=== PATIENT | female | born 1970 | race Caucasian/White ===

== ENCOUNTER 2016-09-27 20:18 | Inpatient (IN) | payer BC, OTHER ==
[2016-09-27] MEDS ORDERED: ONDANSETRON HCL INJ/PF 4 MG/2 ML SDV IV PRN (21:23)
--- NOTE | 2016-09-27 21:24 | ER Document Report ---
ED Cardiac - General Chief Complaint: Chest Pain Stated Complaint: CHEST PAIN Time Seen by Provider: 09/27/16 21:04 Mode of Arrival: Medic Information source: Patient Notes: This is a 46-year-old female status post hysterectomy one week ago presents to the emergency room with left chest and back pain. She states she woke up with the pain and it has been excruciating. It hurts to move it hurts to take in a deep breath patient denies any calf pain or swelling. She denies any family history of pulmonary emboli. - HPI Patient complains to provider of: Chest pain Was the onset of pain: Sudden Is the pain a: New problem Chest pain location: Back Quality of pain: Constant Severity now: Severe Severity at worst: Severe Pain level currently: 5 Chest pain precipitating factors: At Rest Cardiac risk factors: denies: None, Diabetes, Hypertension, Smoker, + Family history, Dyslipidemia, Hx CHF, Hx [place] Positive cardiac history: No Associated symptoms: Shortness of breath. denies: Abdominal pain, Hypotension Exacerbated by: Deep breaths Relieved by: Nothing Similar symptoms previously: Yes Recently seen / treated by doctor: Yes - Related Data Allergies/Adverse Reactions: peanut Allergy (Verified 09/27/16 20:58) Liquid Motrin Allergy (Uncoded 09/27/16 20:58) Liquid Tylenol Allergy (Uncoded 09/27/16 20:58) Past Medical History - General Information source: Patient - Social History Smoking Status: Never Smoker Cigarette use (# per day): No Chew tobacco use (# tins/day): No Frequency of alcohol use: None Drug Abuse: None Lives with: Family Family History: None Patient has suicidal ideation: No Patient has homicidal ideation: No - Past Medical History Cardiac Medical History: Reports: None Pulmonary Medical History: Reports: None EENT Medical History: Reports: None Neurological Medical History: Reports: None Endocrine Medical History: Reports: None Renal/ Medical History: Reports: None Malignancy Medical History: Reports: None GI Medical History: Reports: None Musculoskeltal Medical History: Reports None Skin Medical History: Reports None Psychiatric Medical History: Reports: None Past Surgical History: Reports: Hx Hysterectomy Review of Systems - Review of Systems Constitutional: No symptoms reported EENT: No symptoms reported Cardiovascular: See HPI Respiratory: See HPI Gastrointestinal: No symptoms reported Genitourinary: No symptoms reported Female Genitourinary: No symptoms reported Musculoskeletal: No symptoms reported Skin: No symptoms reported Hematologic/Lymphatic: No symptoms reported Neurological/Psychological: No symptoms reported Physical Exam - Vital signs Vitals: Temp Pulse Resp BP Pulse Ox 98.6 F 85 22 H 94/54 L 96 09/27/16 20:19 09/27/16 20:19 09/27/16 20:19 09/27/16 20:19 09/27/16 20:19 Notes: Physical exam: GENERAL: 46-year-old female, alert and oriented 3, no acute distress HEAD: Atraumatic, normocephalic. EYES: Pupils equal round and reactive to light, extraocular movements intact, sclera anicteric, conjunctiva are normal. ENT: TMs normal, nares patent, oropharynx clear without exudates. Moist mucous membranes. NECK: Normal range of motion, supple without lymphadenopathy or JVD. LUNGS: Breath sounds clear to auscultation bilaterally and equal. No wheezes rales or rhonchi. HEART: Regular rate and rhythm without murmurs, rubs or gallops. ABDOMEN: Soft, normoactive bowel sounds. No tenderness to palpation. No guarding, no rebound. No masses appreciated. EXTREMITIES: Normal range of motion, no pitting or edema. No clubbing or cyanosis. NEUROLOGICAL: Cranial nerves II through XII grossly intact. Normal speech, normal gait. PSYCH: Normal mood, normal affect. SKIN: Warm, Dry, normal turgor, no rashes or lesions noted. Course - Vital Signs Vital signs: Temp Pulse Resp BP Pulse Ox 98.6 F 85 17 107/58 L 95 09/27/16 20:19 09/27/16 20:19 09/27/16 22:46 09/27/16 22:46 09/27/16 23:55 - Laboratory Result Diagrams: 09/27/16 21:35 09/27/16 21:35 Laboratory results interpreted by me: 09/27/16 09/27/16 21:35 21:35 WBC 17.1 H Hgb 11.4 L Hct 33.6 L Seg Neuts % (Manual) 87 H Lymphocytes % (Manual) 4 L Abs Neuts (Manual) 15.6 H Sodium 134.1 L Creatine Kinase 23 L - Diagnostic Test Radiology reviewed: Image reviewed, Reports reviewed - In the chest shows pulmonary emboli. There is an area of atelectasis that may be beginnings of pneumonia. - EKG Interpretation by Me Rate: Normal Rhythm: NSR - EKG shows normal sinus rhythm with a ventricular rate of 80, nonspecific Critical Care Note - Critical Care Note Total time excluding time spent on procedures (mins): 60 Discharge - Discharge Clinical Impression: Bilateral pulmonary emboli, Pneumonia Condition: Stable Disposition: ADMITTED INPATIENT Admitting Provider: Hospitalist - Dr Weller Unit Admitted: [facility]
[2016-09-27] MEDS: HYDROMORPHONE HCL INJ/PF 2 MG/ML AMPULE IV PRN ×2 (21:31→23:35)
--- NOTE | 2016-09-27 21:45 | RADIOLOGY REPORT (SQ) ---
EXAM DESCRIPTION: CHEST SINGLE VIEW COMPLETED DATE/TIME: 09/27/2016 9:12 pm REASON FOR STUDY: chest pain COMPARISON: None. EXAM PARAMETERS: NUMBER OF VIEWS: One view. TECHNIQUE: Single frontal radiographic view of the chest acquired. RADIATION DOSE: NA LIMITATIONS: None. FINDINGS: LUNGS AND PLEURA: Calcified nodule right lower lobe compatible with prior granulomatous di sease. No consolidation, masses or pneumothorax. No pleural effusion. MEDIASTINUM AND HILAR STRUCTURES: No masses. Contour normal. HEART AND VASCULAR STRUCTURES: Heart normal in size. Normal vasculature. BONES: No acute findings. HARDWARE: None in the chest. OTHER: No other significant finding. IMPRESSION: NO ACUTE RADIOGRAPHIC FINDING IN THE CHEST. TECHNICAL DOCUMENTATION: JOB ID: [id number]
[2016-09-27 21:52] LABS: HEMATOCRIT 33.6 % (36.0-47.0); HEMOGLOBIN 11.4 g/dL (12.0-15.5); HGB HCT DIFFERENCE 0.6; MEAN CORPUSCULAR HEMOGLOBIN 30.4 pg (27.0-33.4); MEAN CORPUSCULAR VOLUME 89 fl (80-97); RED BLOOD COUNT 3.76 10^6/uL (3.72-5.28); RED CELL DISTRIBUTION WIDTH 12.8 % (11.5-14.0); WHITE BLOOD COUNT 17.1 10^3/uL (4.0-10.5)
[2016-09-27 22:07] LABS: ALANINE AMINOTRANSFERASE 39 U/L (9-52); ALBUMIN 3.8 g/dL (3.5-5.0); ALKALINE PHOSPHATASE 58 U/L (38-126); ANION GAP 10 (5-19); ASPARTATE AMINO TRANSFERASE 20 U/L (14-36); BILIRUBIN,DIRECT 0.2 mg/dL (0.0-0.4); BILIRUBIN,TOTAL 0.8 mg/dL (0.2-1.3); BLOOD UREA NITROGEN 14 mg/dL (7-20); CALCIUM 8.5 mg/dL (8.4-10.2); CARBON DIOXIDE 24 mmol/L (22-30); CHLORIDE 100 mmol/L (98-107); CREATINE KINASE 23 U/L (30-135); CREATININE RESULT 0.75 mg/dL (0.52-1.25); GLUCOSE 105 mg/dL (75-110); SODIUM 134.1 mmol/L (137-145); TOTAL PROTEIN 6.9 g/dL (6.3-8.2)
[2016-09-27 22:16] LABS: CREATINE KINASE MB < 0.22 ng/mL (<4.55); TROPONIN I < 0.012 ng/mL
[2016-09-27 22:17] LABS: BAND NEUTROPHILS % (MANUAL) 4 % (3-5); BASOPHILS % (MANUAL) 0 % (0-2); EOSINOPHILS % (MANUAL) 0 % (0-6); LYMPHOCYTES % (MANUAL) 4 % (13-45); TOTAL CELLS COUNTED 100
[2016-09-27 22:18] LABS: RBC MORPHOLOGY COMMENT NORMO-CYTIC/CHROMIC; TOXIC GRANULATION SLIGHT
[2016-09-27 22:19] LABS: PLATELET CLUMPS PRESENT
[2016-09-27] MEDS ORDERED: ENOXAPARIN SODIUM INJ 100 MG/1 ML DISP.SYRIN SUBCUT ONE (23:16)
--- NOTE | 2016-09-27 23:16 | RADIOLOGY REPORT (SQ) ---
EXAM DESCRIPTION: CTA CHEST COMPLETED DATE/TIME: 09/27/2016 11:05 pm REASON FOR STUDY: left chest pain COMPARISON: None. TECHNIQUE: CT scan of the chest performed using helical scanning technique with dynamic intravenous contrast injection. Images reviewed with lung, soft tissue and bone windows. Reconstructed coronal and sagittal MPR images reviewed. Additional 3 dimensional post-processing performed to develop Maximal Intensity Projection images (AL P). All images stored on PACS. All CT scanners at this facility use dose modulation, iterative reconstruction, and/or weight based d osing when appropriate to reduce radiation dose to as low as reasonably achievable (ALARA). [facility]: Dose Right [facility]: CareDose [facility]: Dose Right [facility]: Teradose 4D [facility]: GoGoVan CONTRAST TYPE AND DOSE: contrast/concentration: Isovue 370.00 mg/ml; Total Contrast Delivered: 65.0 ml; Total Saline Delivered: 106.0 ml RENAL FUNCTION: GFR > 60. RADIATION DOSE: Up-to-date CT equipment and radiation dose reduction techniques were employed. CTDIv ol: 13.2 - 14.9 mGy. DLP: 586 mGy-cm. . LIMITATIONS: None. FINDINGS: LUNGS AND PLEURA: Left greater than right lower lobe airspace disease with trace bilateral pleural effusions. Calcified granuloma right lower lobe. No pneumothorax. AORTA AND GREAT VESSELS: No aneurysm or dissection. HEART: No pericardial effusion. PULMONARY ARTERIES: Emboli visualized within distal lobar, segmental, and subsegmental branches of th e lower lobe distribution bilaterally. HILAR AND MEDIASTINAL STRUCTURES: No identified masses or abnormal nodes. HARDWARE: None in the chest. UPPER ABDOMEN: No significant findings. Limited exam. THYROID AND OTHER SOFT TISSUES: No masses. No adenopathy. BONES: No acute or significant finding. 3D MIPS: Confirm above findings. OTHER: No other significant finding. IMPRESSION: BILATERAL PULMONARY EMBOLI INVOLVING LOWER LOBE DISTRIBUTION DETAILED ABOVE. NO CT E VIDENCE OF RIGHT HEART STRAIN. BILATERAL LOWER LOBE AIRSPACE DISEASE MAY REPRESENT SUBSEGMENTAL ATELECTASIS, ASPIRATION, OR DEVELOPI NG PNEUMONIA. TRACE BILATERAL PLEURAL EFFUSIONS PRESUMABLY REACTIVE. COMMENT: Pertinent findings on the imaging study reported as a CRITICAL RESULT to ALBARO SOUSA MD at23:10 on 09/27/2016. Category of Critical Result: ACUTE PULMONARY EMBOLI. TECHNICAL DOCUMENTATION: JOB ID: [id number] Quality ID # [id number]: Final reports with documentation of one or more dose reduction techniques (e.g., Au tomated exposure control, adjustment of the mA and/or kV according to patient size, use of iterative reconstruction technique) 2010 [employer]- All Rights Reserved
[2016-09-27] MEDS ORDERED: CEFTRIAXONE 1 GM/D5W RTU 50 ML IV ONE (23:35)
[2016-09-27] MEDS ORDERED: AZITHROMYCIN INJ 500 MG VIAL IV ONE (23:35)
[2016-09-27 23:44] LABS: ADD ON TESTING BLD IN LAB ACKNOWLEDGE
[2016-09-27 23:48] LABS: PROTHROMBIN TIME 14.4 SEC (11.4-15.4)
[2016-09-27 23:49] LABS: PARTIAL THROMBOPLASTIN TIME 32.9 SEC (23.5-35.8)
[2016-09-27 23:53] LABS: MAGNESIUM 1.8 mg/dL (1.6-2.3)
[2016-09-28] MEDS ORDERED: OXYCODONE HCL IR 5 MG TABLET PO PRN ×2 (01:16→01:39)
[2016-09-28] MEDS ORDERED: PROMETHAZINE HCL 25 MG TABLET PO PRN (01:16)
[2016-09-28] MEDS ORDERED: IPRATROPIUM/ALBUTEROL 0.5-2.5 MG/3 ML AMPUL NEB PRN (01:20)
[2016-09-28] MEDS ORDERED: ACETAMINOPHEN 325 MG TABLET PO PRN (01:20)
[2016-09-28] MEDS ORDERED: GUAIFENESIN SYRP 200 MG/10 ML UDC PO PRN (01:20)
[2016-09-28] MEDS ORDERED: MAGNESIUM HYDROXIDE SUSP 30 ML UDCUP PO PRN (01:24)
--- NOTE | 2016-09-28 01:40 | PDOC H&P ---
History of Present Illness Admission Date/PCP: 09/27/16 23:55 [facility] [employer] [address] Marline Frias Patient complains of: Chest pain History of Present Illness: RONNIE WOMACK is a 46 year old female, with underlying chronic hypo glycemia, early arthritis, mild anxiety and depression, without suicidal or homicidal ideation, status post basically overnight stay 1 week ago at [facility] for laparoscopic hysterectomy who presents to the emergency room for evaluation of above complaint. Patient has been discussed with emergency room physician who evaluated the patient. She awoke the morning of the with quite pronounced sharp left chest and back pain, increasing with movement, or deep breath. No calf pain or swelling. Also described positive chills but no fever, nausea vomiting. Has had intermittent diarrhea and soft stools since her surgery; she is on a stool softener. No dysuria. Has had a lot of what she describes as "gas" pain in her abdomen since surgery, but also states this is a chronic problem for her. No personal or family history of clotting problems. Has been hemodynamically stable in the emergency room. Has received systemic Lovenox dose per emergency room physician. Dictation via voice recognition software. Laboratory results are listed in [employer] and are reviewed. X-ray summary results are listed below, with full report(s) reviewed. . EKG reviewed. Social history/personal habits: . Lives with daughter. Works at [employer]. Occasional glass of wine. No tobacco or illicit drug use. Allergies/adverse reactions are listed in [employer]arypic and are reviewed. No problems with the pill form of either Motrin or Tylenol. Home medications initially autopopulated into [employer] may not accurately reflect patient's true medications, dosages, and/or frequencies. 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 Medications also discussed with patient. Her only chronic medication is Zoloft 50 mg every morning. REVIEW OF SYSTEMS: Constitutional: See history and present illness. Eyes: No vision complaints. ENT: No swallowing problems or complaints. Denies hearing loss. Pulmonary: See history and present illness. Cardiovascular: See history and present illness. Gastrointestinal: See history and present illness. Skin: No current complaints, including rashes. Hematologic: Easy bruising. Neurologic: No current complaints, including numbness or tingling. Musculoskeletal: Joint pain from arthritis. See history and present illness. Psychiatric: Mild occasional anxiety and depression. Denies suicidal or homicidal ideation. Endocrine: No current complaints, including polyuria. Genitourinary: No current complaints, including dysuria. PHYSICAL EXAMINATION: 5 feet 4 inches tall. 68.9 kg. BMI 26.1 kg/m. Blood pressure 109/68. Pulse 77 and regular. 93% saturation on room air. Respirations are 17 and unlabored. Temperature 98.6. Well-nourished well-developed female appearing approximately her stated age. Appears to feel a bit under the weather, and perhaps slightly fatigued. Otherwise, alert and cooperative. Female emergency room nurse Cary is present. Patient's daughter, along with patient's female friend, are present; patient approves. Skin is warm and dry. No grossly obvious evidence of rash in areas of skin examined. No subcutaneous nodules palpated. ENT: Hearing grossly normal to normal conversation. Tongue midline on protrusion pink and slightly tacky. Eyes: No scleral icterus. Pupils equal and reactive to light at 4 mm. [place] conjunctivae. Neck is supple and nontender to gentle active range of motion and palpation. Midline trachea. No palpable thyroid nodule mass enlargement or tenderness. Lymphatic: No palpable cervical or clavicular nodes. Neck and lymphatic exams limited by patient body habitus. Psychiatric: Reasonable insight into acute and chronic medical issues. Oriented to time location and why here. Lungs: Auscultation reveals clear and equal breath sounds bilaterally. No use of accessory respiratory muscles. Cardiovascular: Heart regular rate and rhythm, without gallop murmur or rub. No carotid or abdominal aortic bruits. No ankle or pedal edema. Palpable dorsalis pedis pulses. Abdomen:soft perhaps slightly distended with positive bowel sounds. Unable to adequately evaluate abdomen for masses or organomegaly due to distention. Scant primarily lower abdominal discomfort; certainly no evidence of guarding or peritoneal signs. Dry clean and intact Steri-Strips over 2 lower laparoscopic incisions, with umbilical laparoscopic incision healing nicely. Extremities: Feet are warm and dry. No calf tenderness to compression. No grossly obvious visual evidence of calf swelling. Gentle manipulation of lower extremities fails to reveal any obvious evidence of injury or instability to knees hips or ankles. Neurologic: Moves upper extremities grossly normally. Patellar reflexes 1+ and symmetric. Light touch is intact at feet. Dorsiflexion and plantarflexion of feet 5 / 5 and symmetric. Past Medical History Cardiac Medical History: Denies: Atrial Fibrillation, Congestive Heart Failure, Coronary Artery Disease, DVT, Myocardial Infarction, Hyperlipidema, Hypertension, Pulmonary Embolism Pulmonary Medical History: Denies: Asthma, Chronic Obstructive Pulmonary Disease (COPD), Sleep Apnea EENT Medical History: Denies: Eyes, Ears, Throat Neurological Medical History: Denies: Hemorrhagic CVA, Ischemic CVA, Seizures Endocrine Medical History: Reports: Other - Chronic intermittent HYPOglycemia Denies: Diabetes Mellitus Type 1, Diabetes Mellitus Type 2, Hyperthyroidism, Hypothyroidism Renal/ Medical History: Reports: None Malignancy Medical History: Reports: None GI Medical History: Denies: Cirrhosis, Gastroesophageal Reflux Disease, Hepatitis, Peptic Ulcer Disease Musculoskeltal Medical History: Reports: Arthritis - Mild arthritis Skin Medical History: Reports: None Psychiatric Medical History: Reports: Depression, General Anxiety Disorder Denies: Alcohol Dependency, Substance Abuse, Tobacco Dependency Hematology: Reports: Other - Easy bruising Infectious Medical History: Denies: Hepatitis B, Hepatitis C Past Surgical History Past Surgical History: Reports: Hysterectomy, Orthopedic Surgery - Carpal tunnel release Social History Information Source: Patient, Friend, Emergency Med Personnel, [facility] Records Lives with: Family Smoking Status: Unknown if Ever Smoked Frequency of Alcohol Use: Occasional Hx Recreational Drug Use: No Drugs: None - Advance Directive Resuscitation Status: Full Code Surrogate healthcare decision maker:: Uncertain at this point in time Family History Family History: None Parental Family History Reviewed: Yes - Father alive with prostate cancer; mother alive, History of uterine cancer Children Family History Reviewed: Yes - Healthy Sibling(s) Family History Reviewed.: Yes - Sister is diabetic Medication/Allergy Home Medications: Docusate Sodium [Colace 100 mg Capsule] 100 mg PO Q8HP PRN 09/28/16 Lorazepam 1 mg PO DAILYP PRN 09/28/16 Oxycodone HCl [Oxycodone HCl 10 MG Tablet] 10 mg PO Q4HP PRN 09/28/16 Sertraline HCl [Zoloft 50 mg Tablet] 50 mg PO DAILY 09/28/16 Simethicone [Gas-X] 125 mg PO Q12HP PRN 09/28/16 Amoxicillin/Potassium Clav [Augmentin 875-125 Tablet] 1 each PO Q12 #16 tablet 09/30/16 Rivaroxaban [Xarelto] 1 each PO ASDIR PRN #1 tab.ds.pk 09/30/16 Simethicone [Mylicon 80 mg Chewable Tablet] 160 mg PO Q12HP PRN tab.chew Allergies/Adverse Reactions: peanut Allergy (Verified 09/27/16 20:58) Liquid Motrin Adverse Reaction (Uncoded 09/28/16 01:19) Tachycardia Liquid Tylenol Adverse Reaction (Uncoded 09/28/16 01:19) Tachycardia Physical Exam Vital Signs: Temp Pulse Resp BP Pulse Ox 98.6 F 85 18 109/68 95 09/27/16 20:19 09/27/16 20:19 09/28/16 01:00 09/28/16 00:01 09/28/16 01:12 Results Laboratory Results: 09/28/16 00:19 Troponin I < 0.012 Impressions: Chest X-Ray 09/27/16 20:50 IMPRESSION: NO ACUTE RADIOGRAPHIC FINDING IN THE CHEST. Chest/Abdomen CTA 09/27/16 22:37 IMPRESSION: BILATERAL PULMONARY EMBOLI INVOLVING LOWER LOBE DISTRIBUTION DETAILED ABOVE. NO CT EVIDENCE OF RIGHT HEART STRAIN. BILATERAL LOWER LOBE AIRSPACE DISEASE MAY REPRESENT SUBSEGMENTAL ATELECTASIS, ASPIRATION, OR DEVELOPING PNEUMONIA. TRACE BILATERAL PLEURAL EFFUSIONS PRESUMABLY REACTIVE. Assessment & Plan - Diagnosis (1) Anticoagulated Is this a current diagnosis for this admission?: Yes (2) Basal pneumonia of both lungs Is this a current diagnosis for this admission?: YesPlan: Patient will be admitted under pneumonia protocol. Incentive spirometry twice a day. As needed DuoNeb's. Antibiotics will consist of intravenous Zithromax, along with Rocephin Patient is a full code. I have strongly encouraged patient not to get out of bed without notifying staff , to avoid a fall with injury. Knee high SCDs for DVT prophylaxis. Impression and plans were discussed with patient, daughter, and female friend, all of whom concur. Time spent in evaluation and management of patient: 72 minutes. (3) Chest pain Qualifiers: Chest pain type: chest pain on breathing Qualified Code(s): R07.1 - Chest pain on breathing; R07.81 - Pleurodynia Is this a current diagnosis for this admission?: YesPlan: As needed pain medication. (4) Pulmonary emboli Qualifiers: Pulmonary embolism type: other Chronicity: acute Acute cor pulmonale presence: without acute cor pulmonale Qualified Code(s): I26.99 - Other pulmonary embolism without acute cor pulmonale Is this a current diagnosis for this admission?: YesPlan: Systemic anticoagulation recommended to patient. Patient daughter, and female friend understand the risks of systemic anti-coagulation to include but not be limited to internal bleeding, which can take the form of GI tract and/or intracranial hemorrhage, the latter of which can result in or stroke with permanent paralysis. All understand that untreated pulmonary emboli can be fatal. Patient has no absolute contraindication to systemic anticoagulation. Above discussed in lay person's terms. Patient agrees to undergo systemic anticoagulation. Systemic Lovenox. Hematology consult. Appropriate vital sign parameters. At 1:17 AM, September 27, 2016, I discussed the patient by telephone with her asbestos remover, Dr. Marline Frias. She appreciated the update and had nothing to add in terms of recommendation for treatment. - Time Time Spent: Greater than 70 Minutes Medications reviewed and adjusted accordingly: Yes Anticipated discharge: Home Within: within 72 hours - Inpatient Certification Based on my medical assessment, after consideration of the patient's comorbidities, presenting symptoms, or acuity I expect that the services needed warrant INPATIENT care.: Yes I certify that my determination is in accordance with my understanding of Medicare's requirements for reasonable and necessary INPATIENT services [42 CFR 412.3e].: Yes Medical Necessity: Need Close Monitoring Due to Risk of Patient Decompensation, Need For Continuous Telemetry Monitoring, Need for IV Antibiotics, Risk of Complication if Not Cared For in Hospital Post Hospital Care: D/C or Transfer Summary
[2016-09-28 03:05] LABS: ADD ON TESTING BLD IN LAB ACKNOWLEDGE
[2016-09-28] MEDS: MORPHINE SULFATE 10 MG/ML INJ IV PRN ×4 (03:09→18:10)
[2016-09-28 03:17] LABS: LIPASE 27.3 U/L (23-300)
[2016-09-28 06:47] LABS: ABSOLUTE BASOPHILS # (AUTO) 0.1 10^3/uL (0.0-0.2); ABSOLUTE LYMPHOCYTES (AUTO) 0.8 10^3/uL (0.5-4.7); ABSOLUTE MONOCYTES (AUTO) 0.8 10^3/uL (0.1-1.4); ABSOLUTE NEUT (AUTO) 12.6 10^3/uL (1.7-8.2); BASOPHILS % (AUTO) 0.5 % (0-2); EOSINOPHILS % (AUTO) 0.1 % (0-6); HEMATOCRIT 31.7 % (36.0-47.0); HEMOGLOBIN 10.9 g/dL (12.0-15.5); LYMPHOCYTES % (AUTO) 5.9 % (13-45); MEAN CORPUSCULAR HEMOGLOBIN 30.5 pg (27.0-33.4); MEAN CORPUSCULAR HGB CONC 34.4 g/dL (32.0-36.0); MEAN CORPUSCULAR VOLUME 89 fl (80-97); MONOCYTES % (AUTO) 5.8 % (3-13); RED BLOOD COUNT 3.58 10^6/uL (3.72-5.28); RED CELL DISTRIBUTION WIDTH 12.5 % (11.5-14.0); SEGMENTED NEUTROPHILS % (AUTO) 87.7 % (42-78); WHITE BLOOD COUNT 14.3 10^3/uL (4.0-10.5)
[2016-09-28 08:14] LABS: APPEARANCE,URINE SLIGHTLY-CLOUDY; BILIRUBIN,URINE NEGATIVE (NEGATIVE); GLUCOSE, URINE NEGATIVE (NEGATIVE); KETONES,URINE TRACE mg/dL (NEGATIVE); LEUKOCYTE ESTERASE,URINE SMALL (NEGATIVE); NITRITE,URINE NEGATIVE (NEGATIVE); PROTEIN,URINE NEGATIVE (NEGATIVE); URINE SPECIFIC GRAVITY 1.019; UROBILINOGEN,URINE NEGATIVE mg/dL (<2.0)
[2016-09-28] MEDS: DOCUSATE SODIUM 100 MG CAPSULE PO SCH ×2 (09:09→18:10)
[2016-09-28] MEDS: CEFTRIAXONE 1 GM/D5W RTU 50 ML IV SCH (09:10)
[2016-09-28] MEDS: ENOXAPARIN SODIUM INJ 80 MG/0.8 ML DISP.SYRIN SUBCUT SCH ×2 (10:32→21:27)
[2016-09-28] MEDS: SERTRALINE HCL 50 MG TABLET PO SCH (10:32)
[2016-09-28] MEDS ORDERED: ENOXAPARIN SODIUM INJ 80 MG/0.8 ML DISP.SYRIN SUBCUT SCH (11:30)
[2016-09-28] MEDS ORDERED: ENOXAPARIN SODIUM INJ 80 MG/0.8 ML DISP.SYRIN SUBCUT ONE (11:30)
[2016-09-28] MEDS ORDERED: MORPHINE SULFATE 10 MG/ML INJ IV PRN (12:34)
--- NOTE | 2016-09-28 12:46 | RADIOLOGY REPORT (SQ) ---
EXAM DESCRIPTION: VENOUS BILATERAL LOWER COMPLETED DATE/TIME: 09/28/2016 12:38 pm REASON FOR STUDY: bilat PE COMPARISON: None. TECHNIQUE: Dynamic and static sena scale and color images acquired of both lower extremity venous sy stems. Selected spectral images acquired with additional compression and augmentation maneuvers. Imag es stored on PACS. LIMITATIONS: None. FINDINGS: RIGHT LEG COMMON FEMORAL AND FEMORAL: Normal phasicity, compression and augmentation. No visualized echogenic m aterial on sena scale. No defects on color images. POPLITEAL: Normal compression and augmentation. No visualized echogenic material on sena scale. No de fects on color images. CALF VESSELS: Normal compression and augmentation. No visualized echogenic material on sena scale. No defects on color image. GSV AND SSV: Normal compression. No visualized echogenic material on sena scale. No defects on color images. ANY DEEP VENOUS INSUFFICIENCY: Not evaluated. ANY EVIDENCE OF POPLITEAL CYST: No. OTHER: No other significant finding. LEFT LEG COMMON FEMORAL AND FEMORAL: Normal phasicity, compression and augmentation. No visualized echogenic m aterial on sena scale. No defects on color images. POPLITEAL: Normal compression and augmentation. No visualized echogenic material on sena scale. No de fects on color images. CALF VESSELS: Normal compression and augmentation. No visualized echogenic material on sena scale. No defects on color images. GSV AND SSV: Normal compression. No visualized echogenic material on sena scale. No defects on color images. ANY DEEP VENOUS INSUFFICIENCY: Not evaluated. ANY EVIDENCE POPLITEAL CYST: No. OTHER: No other significant finding. IMPRESSION: NO EVIDENCE DVT OR SVT IN EITHER LEG. TECHNICAL DOCUMENTATION: JOB ID: [id number] [employer]- All Rights Reserved
--- NOTE | 2016-09-28 12:58 | PDOC CONSULTATION ---
Consultation Consult Date: 09/28/16 Attending physician:: ADRI MURDOCK Consult reason:: Multiple bilateral PE History of Present Illness Admission Date/PCP: 09/28/16 01:20 Patient complains of: Shortness of breath, chest pain found to have PE History of Present Illness: 46-year-old female with recent history of laparoscopic hysterectomy done about 1 week ago at [facility], about 4 days ago she began having some right upper thigh pain, thereafter she began having some shortness of breath and chest pain, yesterday it became very severe and she could not move, EMS was called and she was brought here, she was given pain medication as well as oxygenation, she had CTA of the chest which did indicate multiple bilateral PE but also bilateral lower lobe opacities concerning for pneumonia or atelectasis. She is currently having a lot of pain, and still having shortness of breath. She is on Lovenox twice a day. Past Medical History Cardiac Medical History: Reports: None Denies: Atrial Fibrillation, Congestive Heart Failure, Coronary Artery Disease, DVT, Myocardial Infarction, Hyperlipidema, Hypertension, Pulmonary Embolism Pulmonary Medical History: Reports: None Denies: Asthma, Chronic Obstructive Pulmonary Disease (COPD), Sleep Apnea EENT Medical History: Reports: None, Other - Easy bruising Denies: Eyes, Ears, Throat Neurological Medical History: Reports: None Denies: Hemorrhagic CVA, Ischemic CVA, Seizures Endocrine Medical History: Reports: None, Other - Chronic intermittent hypoglycemia Denies: Diabetes Mellitus Type 1, Diabetes Mellitus Type 2, Hyperthyroidism, Hypothyroidism Renal/ Medical History: Reports: None Malignancy Medical History: Reports: None GI Medical History: Reports: None Denies: Cirrhosis, Gastroesophageal Reflux Disease, Hepatitis, Peptic Ulcer Disease Musculoskeltal Medical History: Reports: None, Arthritis - Mild arthritis Skin Medical History: Reports: None Psychiatric Medical History: Reports: None, Depression, General Anxiety Disorder Denies: Alcohol Dependency, Substance Abuse, Tobacco Dependency Hematology: Reports: Other - Easy bruising Infectious Medical History: Denies: Hepatitis B, Hepatitis C Past Surgical History Past Surgical History: Reports: Hysterectomy, Orthopedic Surgery - Carpal tunnel release Social History Lives with: Family Smoking Status: Never Smoker Frequency of Alcohol Use: Occasional Hx Recreational Drug Use: No Drugs: None Hx Prescription Drug Abuse: No - Advance Directive Resuscitation Status: Full Code Family History Family History: None Parental Family History Reviewed: Yes Children Family History Reviewed: Yes Sibling(s) Family History Reviewed.: Yes Medication/Allergy Home Medications: Docusate Sodium [Colace 100 mg Capsule] 100 mg PO Q8HP PRN 09/28/16 Lorazepam [Lorazepam] 1 mg PO DAILYP PRN 09/28/16 Oxycodone HCl [Oxycodone HCl 10 MG Tablet] 10 mg PO Q4HP PRN 09/28/16 Sertraline HCl [Zoloft 50 mg Tablet] 50 mg PO DAILY 09/28/16 Simethicone [Gas-X] 125 mg PO Q12HP PRN 09/28/16 Allergies/Adverse Reactions: peanut Allergy (Verified 09/27/16 20:58) Liquid Motrin Adverse Reaction (Uncoded 09/28/16 01:19) Tachycardia Liquid Tylenol Adverse Reaction (Uncoded 09/28/16 01:19) Tachycardia Review of Systems Constitutional: PRESENT: fatigue, weakness Respiratory: PRESENT: dyspnea Gastrointestinal: PRESENT: bloating Neurological: ABSENT: abnormal gait, abnormal speech, confusion, dizziness, focal weakness, syncope Physical Exam Vital Signs: Temp Pulse Resp BP Pulse Ox 98.9 F 76 14 104/61 95 09/28/16 08:41 09/28/16 08:41 09/28/16 08:41 09/28/16 08:41 09/28/16 08:41 Intake & Output 09/27/16 09/28/16 09/29/16 06:59 06:59 06:59 Intake Total 105 Balance 105 Weight 69.4 kg General appearance: PRESENT: no acute distress, well-developed, well-nourished Head exam: PRESENT: atraumatic, normocephalic Eye exam: PRESENT: conjunctiva pink, EOMI, PERRLA. ABSENT: scleral icterus Ear exam: PRESENT: normal external ear exam Mouth exam: PRESENT: moist, tongue midline Neck exam: ABSENT: carotid bruit, JVD, lymphadenopathy, thyromegaly Respiratory exam: PRESENT: clear to auscultation zak. ABSENT: rales, rhonchi, wheezes Cardiovascular exam: PRESENT: RRR. ABSENT: diastolic murmur, rubs, systolic murmur Pulses: PRESENT: normal dorsalis pedis pul Vascular exam: PRESENT: normal capillary refill GI/Abdominal exam: PRESENT: normal bowel sounds, soft. ABSENT: distended, guarding, mass, organolmegaly, rebound, tenderness Rectal exam: PRESENT: deferred Extremities exam: PRESENT: full ROM. ABSENT: calf tenderness, clubbing, pedal edema Neurological exam: PRESENT: alert, awake, oriented to person, oriented to place , oriented to time, oriented to situation, CN II-XII grossly intact. ABSENT: motor sensory deficit Psychiatric exam: PRESENT: appropriate affect, normal mood. ABSENT: homicidal ideation, suicidal ideation Skin exam: PRESENT: dry, intact, warm. ABSENT: cyanosis, rash Results Laboratory Results: 09/28/16 06:31 09/28/16 09/28/16 06:31 07:50 WBC 14.3 H RBC 3.58 L Hgb 10.9 L Hct 31.7 L MCV 89 MCH 30.5 MCHC 34.4 RDW 12.5 Plt Count 188 Seg Neutrophils % 87.7 H Lymphocytes % 5.9 L Monocytes % 5.8 Eosinophils % 0.1 Basophils % 0.5 Absolute Neutrophils 12.6 H Absolute Lymphocytes 0.8 Absolute Monocytes 0.8 Absolute Eosinophils 0.0 Absolute Basophils 0.1 Urine Color YELLOW Urine Appearance SLIGHTLY-CLOUDY Urine pH 5.0 Ur Specific [place] 1.019 Urine Protein NEGATIVE Urine Glucose (UA) NEGATIVE Urine Ketones TRACE H Urine Blood MODERATE H Urine Nitrite NEGATIVE Ur Leukocyte Esterase SMALL H Urine WBC (Auto) 47 Urine RBC (Auto) 5 Impressions: Chest X-Ray 09/27/16 20:50 IMPRESSION: NO ACUTE RADIOGRAPHIC FINDING IN THE CHEST. Chest/Abdomen CTA 09/27/16 22:37 IMPRESSION: BILATERAL PULMONARY EMBOLI INVOLVING LOWER LOBE DISTRIBUTION DETAILED ABOVE. NO CT EVIDENCE OF RIGHT HEART STRAIN. BILATERAL LOWER LOBE AIRSPACE DISEASE MAY REPRESENT SUBSEGMENTAL ATELECTASIS, ASPIRATION, OR DEVELOPING PNEUMONIA. TRACE BILATERAL PLEURAL EFFUSIONS PRESUMABLY REACTIVE. Assessment & Plan - Diagnosis (1) Pulmonary emboli Qualifiers: Pulmonary embolism type: other Chronicity: acute Acute cor pulmonale presence: without acute cor pulmonale Qualified Code(s): I26.99 - Other pulmonary embolism without acute cor pulmonale Is this a current diagnosis for this admission?: YesPlan: Bilateral, provoked from recent surgery, continue Lovenox for another 48 hours in-house because patient is having a lot of pain, secondary to pain we are going to increase morphine as well as oxycodone, once she can tolerate oxycodone alone she should be able to go home, we would recommend for her to be on Xarelto 15 mg twice a day for 21 days then 20 mg daily thereafter. She could probably be discharged ultimately in the next 24-48 hours with the Xarelto starter pack. We will follow while in-house. We will make arrangements for follow-up at our clinic. - Time Time Spent: 50 to 70 Minutes Critical Time spent with patient: 25-34 minutes Within: within 48 hours - Inpatient Certification Based on my medical assessment, after consideration of the patient's comorbidities, presenting symptoms, or acuity I expect that the services needed warrant INPATIENT care.: Yes I certify that my determination is in accordance with my understanding of Medicare's requirements for reasonable and necessary INPATIENT services [42 CFR 412.3e].: Yes Medical Necessity: Need for Pain Control
[2016-09-28] MEDS: OXYCODONE HCL IR 5 MG TABLET PO PRN ×2 (14:19→22:03)
--- NOTE | 2016-09-28 15:15 | EKG REPORT ---
SEVERITY:- BORDERLINE ECG - SINUS RHYTHM BORDERLINE T ABNORMALITIES, DIFFUSE LEADS : Confirmed by: Maryjo Tolentino MD 28-Sep-2016 15:14:19
--- NOTE | 2016-09-28 16:48 | PROGRESS NOTE E ---
Progress Note NAME: RONNIE WOMACK : 1970 AGE: 46Y DATE: 09/28/2016 ROOM: 313 SUBJECTIVE: The patient is lying in bed. The patient states that she no longer has dyspnea, however, does have significant amount of pain in her right lateral side. The patient denies any nausea, vomiting or diarrhea, no shortness of breath, dizziness or chest pain. No fever or chills. The patient has been afebrile. Blood pressures have been in a good range. The patient does not voice any other concerns at this time. REVIEW OF SYSTEMS: Rest of review of systems is negative. MEDICATIONS: Medications have been reviewed. OBJECTIVE: GENERAL: The patient is a 46-year-old female who is awake, alert and oriented to person, place, time and situation. She is verbal and conversational and does to appear to be in any acute distress. VITAL SIGNS: Temperature is 98.9, pulse 76, respirations 14, blood pressure 104/61, oxygen saturation is 95% on room air. SKIN: Warm and dry. No rash, not diaphoretic. HEENT: Pupils are equal, round, reactive to light and accommodation. Conjunctivae pink. NECK: There is no JVP. CARDIOVASCULAR: Heart is regular. There is no murmur or rub. CHEST: Diminished but symmetrical and unlabored. ABDOMEN: Soft, nontender and nondistended. BACK: No CVA tenderness or sacral edema. EXTREMITIES: No clubbing, cyanosis or edema. PSYCHIATRIC: Appropriate affect and pleasant mood. DIAGNOSTIC DATA: Lab values are as follows: Hematology obtained on 09/28/2016: WBC is 14.3, hemoglobin 10.9, hematocrit 31.7, and platelet count is 188,000. Chemistries obtained on 09/28/2016: Troponin is 0.012, lipase is 27.3. Blood cultures obtained on 09/28/2016 are pending. IMPRESSION AND PLAN: 1. BILATERAL PULMONARY EMBOLI. Most likely provoked by surgical status. Will continue Lovenox and follow. 2. PNEUMONIA SECONDARY TO #1. Will continue antibiotic coverage. The patient no longer has any bands and white count is improving. The patient is currently afebrile. Will follow. 3. DVT PROPHYLAXIS. The patient is fully anticoagulated. DISPOSITION: The patient is a FULL CODE. Pending the patient's symptomatology and diagnostic findings, will re-evaluate in the a.m. TIME: Time spent on this followup including assessment, plan, physical examination, patient education, specialty collaboration and review of records is 35 minutes. DICTATING PHYSICIAN: RED ROSE NP [id number] PHY#: [id number] ID: [id number] JOB#: [id number] ACCT: [id number] cc: >
[2016-09-28 19:53] LABS: ABSOLUTE MONOCYTES (AUTO) 0.9 10^3/uL (0.1-1.4); ABSOLUTE NEUT (AUTO) 13.9 10^3/uL (1.7-8.2); BASOPHILS % (AUTO) 0.1 % (0-2); EOSINOPHILS % (AUTO) 0.1 % (0-6); HEMATOCRIT 31.2 % (36.0-47.0); HEMOGLOBIN 10.6 g/dL (12.0-15.5); HGB HCT DIFFERENCE 0.6; LYMPHOCYTES % (AUTO) 6.1 % (13-45); MEAN CORPUSCULAR HEMOGLOBIN 30.3 pg (27.0-33.4); MEAN CORPUSCULAR HGB CONC 34.1 g/dL (32.0-36.0); MEAN CORPUSCULAR VOLUME 89 fl (80-97); MONOCYTES % (AUTO) 5.7 % (3-13); RED BLOOD COUNT 3.51 10^6/uL (3.72-5.28); RED CELL DISTRIBUTION WIDTH 12.7 % (11.5-14.0); WHITE BLOOD COUNT 15.8 10^3/uL (4.0-10.5)
[2016-09-28] MEDS ORDERED: AZITHROMYCIN 500 MG in DEXTROSE 5%-WATER 250 ML IV SCH (22:00)
[2016-09-29] MEDS: MORPHINE SULFATE 10 MG/ML INJ IV PRN (02:20)
[2016-09-29] MEDS: OXYCODONE HCL IR 5 MG TABLET PO PRN ×4 (04:14→23:21)
[2016-09-29 05:35] LABS: ABSOLUTE MONOCYTES (AUTO) 1.1 10^3/uL (0.1-1.4); ABSOLUTE NEUT (AUTO) 14.7 10^3/uL (1.7-8.2); EOSINOPHILS % (AUTO) 0.2 % (0-6); HEMATOCRIT 30.7 % (36.0-47.0); HEMOGLOBIN 10.6 g/dL (12.0-15.5); HGB HCT DIFFERENCE 1.1; LYMPHOCYTES % (AUTO) 5.7 % (13-45); MEAN CORPUSCULAR HEMOGLOBIN 30.8 pg (27.0-33.4); MEAN CORPUSCULAR HGB CONC 34.5 g/dL (32.0-36.0); MEAN CORPUSCULAR VOLUME 89 fl (80-97); MONOCYTES % (AUTO) 6.3 % (3-13); RED BLOOD COUNT 3.44 10^6/uL (3.72-5.28); RED CELL DISTRIBUTION WIDTH 12.5 % (11.5-14.0); SEGMENTED NEUTROPHILS % (AUTO) 87.8 % (42-78); WHITE BLOOD COUNT 16.7 10^3/uL (4.0-10.5)
[2016-09-29 05:59] LABS: ANION GAP 8 (5-19); BLOOD UREA NITROGEN 8 mg/dL (7-20); CALCIUM 8.5 mg/dL (8.4-10.2); CARBON DIOXIDE 28 mmol/L (22-30); CHLORIDE 96 mmol/L (98-107); CREATININE RESULT 0.86 mg/dL (0.52-1.25); GLUCOSE 91 mg/dL (75-110); MAGNESIUM 1.9 mg/dL (1.6-2.3); POTASSIUM 3.8 mmol/L (3.6-5.0)
[2016-09-29] MEDS: DOCUSATE SODIUM 100 MG CAPSULE PO SCH ×2 (09:58→17:22)
[2016-09-29] MEDS: CEFTRIAXONE 1 GM/D5W RTU 50 ML IV SCH (09:58)
[2016-09-29] MEDS: ENOXAPARIN SODIUM INJ 80 MG/0.8 ML DISP.SYRIN SUBCUT SCH ×2 (09:58→22:19)
[2016-09-29] MEDS: SERTRALINE HCL 50 MG TABLET PO SCH (09:58)
[2016-09-29] MEDS ORDERED: AMPICILLIN SODIUM/SULBACTAM NA 3 GM in NORMAL SALINE 100 ML IV SCH (12:30)
[2016-09-29] MEDS ORDERED: ACETAMINOPHEN 325 MG TABLET PO ONE (13:00)
[2016-09-29] MEDS: PIPERACILLIN SODIUM/TAZOBACTAM 4.5 GM in NORMAL SALINE 100 ML IV SCH ×2 (15:11→20:30)
--- NOTE | 2016-09-29 15:44 | PROGRESS NOTE E ---
Progress Note NAME: RONNIE WOMACK : 1970 AGE: 46Y DATE: 09/29/2016 ROOM: 313 SUBJECTIVE: The patient is lying in bed. She states she feels a little better today. No shortness of breath. A scant amount of vaginal bleeding. She did cough up some blood, but her hemoglobin has remained stable. The patient has been afebrile, her blood pressures have been in a good range, and the patient does not voice any other concerns at this time. REVIEW OF SYSTEMS: The rest of the review of systems is negative. MEDICATIONS: Medications have been reviewed. OBJECTIVE: GENERAL: The patient is a 46-year-old female who is awake, alert and oriented to person, place, time, and situation. She is verbal, conversational, does not appear to be in any acute distress. VITAL SIGNS: As follows: Temperature is 98.7, pulse 77, respirations 18, blood pressure is 91/42, oxygen saturation 99% on room air. SKIN: Warm and dry. No rash. Not diaphoretic. HEENT: Pupils equal, round, reactive to light and accommodation. Conjunctiva pink. NECK: No JVP. CARDIOVASCULAR SYSTEM: Heart is regular. There is no murmur or rub. CHEST: Clear, symmetrical, unlabored. ABDOMEN: Soft, nontender, nondistended. BACK: No CVA tenderness or sacral edema. EXTREMITIES: No clubbing, cyanosis, edema. PSYCHIATRIC: Appropriate affect. Pleasant mood. DIAGNOSTICS: Lab values are as follows: Hematology obtained on 09/29/2016; WBCs are 16.7, hemoglobin is 10.6, hematocrit is 30.7, platelet count is 186,000. Chemistry obtained on 09/29/2016: Sodium is 132, potassium 3.8, chloride is 96, carbon dioxide 28, BUN 8, creatinine is 0.86, glucose 91, calcium is 8.5, magnesium is 1.9. IMPRESSION AND PLAN: 1. BILATERAL PULMONARY EMBOLI, MOST LIKELY PROVOKED BY SURGICAL STATUS AND IMMOBILITY. Will continue Lovenox and follow. The patient can be transitioned to Xarelto tomorrow. I do appreciate Hematology's input on this. 2. PNEUMONIA SECONDARY TO NUMBER 1. Will transition antibiotic coverage to Zosyn given that the patient has had a bump in her white count. The patient no longer has any bands. The patient has had a low-grade temperature, will follow. 3. DVT PROPHYLAXIS. The patient is fully anticoagulated. DISPOSITION: The patient is a FULL CODE. Pending patient's symptomatology and diagnostic, will re-evaluate in the a.m. Time spent on this followup including assessment, plan, physical examination, patient education, and speciality collaboration is 25 minutes. DICTATING PHYSICIAN: RED ROSE NP [id number] PHY#: [id number] ID: [id number] JOB#: [id number] ACCT: [id number] cc:RED ROSE NP >
[2016-09-29] MEDS ORDERED: (PENDING PHARMACY ID) (Simethicone [Gas-X] 125 MG) PO PRN (16:07)
[2016-09-29] MEDS: LACTOBACILLUS ACIDOPHILUS 250 MG TAB PO SCH (17:22)
[2016-09-29] MEDS: SIMETHICONE 80 MG TAB.CHEW PO PRN (18:42)
[2016-09-30] MEDS: PIPERACILLIN SODIUM/TAZOBACTAM 4.5 GM in NORMAL SALINE 100 ML IV SCH ×2 (02:48→09:33)
[2016-09-30 05:05] LABS: HEMATOCRIT 27.6 % (36.0-47.0); HEMOGLOBIN 9.6 g/dL (12.0-15.5); HGB HCT DIFFERENCE 1.2; MEAN CORPUSCULAR HEMOGLOBIN 30.9 pg (27.0-33.4); MEAN CORPUSCULAR HGB CONC 34.9 g/dL (32.0-36.0); MEAN CORPUSCULAR VOLUME 89 fl (80-97); RED BLOOD COUNT 3.12 10^6/uL (3.72-5.28); RED CELL DISTRIBUTION WIDTH 12.9 % (11.5-14.0); WHITE BLOOD COUNT 13.9 10^3/uL (4.0-10.5)
[2016-09-30] MEDS: OXYCODONE HCL IR 5 MG TABLET PO PRN (05:59)
--- NOTE | 2016-09-30 08:09 | PDOC PROGRESS REPORT ---
Subjective Progress Note for:: 09/30/16 Subjective:: Pain better controlled, over the last 24 hours required only oxycodone still having some vaginal bleeding, otherwise doing well Physical Exam Vital Signs: Temp Pulse Resp BP Pulse Ox 99.3 F 77 18 103/52 L 98 09/30/16 03:44 09/30/16 03:44 09/30/16 03:44 09/30/16 03:44 09/30/16 03:44 Intake & Output 09/29/16 09/30/16 10/01/16 06:59 06:59 06:59 Intake Total 1767 2403 Output Total 2100 1400 Balance -333 1003 General appearance: PRESENT: no acute distress, well-developed, well-nourished Head exam: PRESENT: atraumatic, normocephalic Eye exam: PRESENT: conjunctiva pink, EOMI, PERRLA. ABSENT: scleral icterus Ear exam: PRESENT: normal external ear exam Mouth exam: PRESENT: moist, tongue midline Neck exam: ABSENT: carotid bruit, JVD, lymphadenopathy, thyromegaly Respiratory exam: PRESENT: clear to auscultation zak. ABSENT: rales, rhonchi, wheezes Cardiovascular exam: PRESENT: RRR. ABSENT: diastolic murmur, rubs, systolic murmur Pulses: PRESENT: normal dorsalis pedis pul Vascular exam: PRESENT: normal capillary refill GI/Abdominal exam: PRESENT: normal bowel sounds, soft. ABSENT: distended, guarding, mass, organolmegaly, rebound, tenderness Rectal exam: PRESENT: deferred Extremities exam: PRESENT: full ROM. ABSENT: calf tenderness, clubbing, pedal edema Neurological exam: PRESENT: alert, awake, oriented to person, oriented to place , oriented to time, oriented to situation, CN II-XII grossly intact. ABSENT: motor sensory deficit Psychiatric exam: PRESENT: appropriate affect, normal mood. ABSENT: homicidal ideation, suicidal ideation Skin exam: PRESENT: dry, intact, warm. ABSENT: cyanosis, rash Results Laboratory Results: 09/30/16 04:46 09/29/16 06:00 09/30/16 04:46 WBC 13.9 H RBC 3.12 L Hgb 9.6 L Hct 27.6 L MCV 89 MCH 30.9 MCHC 34.9 RDW 12.9 Plt Count 197 Impressions: Chest X-Ray 09/27/16 20:50 IMPRESSION: NO ACUTE RADIOGRAPHIC FINDING IN THE CHEST. Chest/Abdomen CTA 09/27/16 22:37 IMPRESSION: BILATERAL PULMONARY EMBOLI INVOLVING LOWER LOBE DISTRIBUTION DETAILED ABOVE. NO CT EVIDENCE OF RIGHT HEART STRAIN. BILATERAL LOWER LOBE AIRSPACE DISEASE MAY REPRESENT SUBSEGMENTAL ATELECTASIS, ASPIRATION, OR DEVELOPING PNEUMONIA. TRACE BILATERAL PLEURAL EFFUSIONS PRESUMABLY REACTIVE. Venous Doppler Study 09/28/16 00:00 IMPRESSION: NO EVIDENCE DVT OR SVT IN EITHER LEG. Assessment & Plan - Diagnosis (1) Pulmonary emboli Qualifiers: Pulmonary embolism type: other Chronicity: acute Acute cor pulmonale presence: without acute cor pulmonale Qualified Code(s): I26.99 - Other pulmonary embolism without acute cor pulmonale Is this a current diagnosis for this admission?: YesPlan: Result, doing better, she did have fever yesterday so broad-spectrum antibiotics were started, if she is stable from a pneumonia standpoint per hospitalist team she could likely discharge, she will need to have Xarelto 15 mg starter pack - Time Time Spent with patient: 35 or more minutes Critical Time spent with patient: 35 or more minutes Anticipated discharge: Home Within: within 24 hours
[2016-09-30] MEDS ORDERED: PROMETHAZINE HCL 25 MG TABLET PO PRN (08:26)
[2016-09-30] MEDS ORDERED: BISACODYL 10 MG SUPP.RECT PR PRN (08:28)
[2016-09-30] MEDS ORDERED: BISACODYL 10 MG SUPP.RECT PR ONE (08:30)
[2016-09-30] MEDS: DOCUSATE SODIUM 100 MG CAPSULE PO SCH (09:24)
[2016-09-30] MEDS: LACTOBACILLUS ACIDOPHILUS 250 MG TAB PO SCH (09:25)
[2016-09-30] MEDS: SERTRALINE HCL 50 MG TABLET PO SCH (09:26)
[2016-09-30] MEDS: SIMETHICONE 80 MG TAB.CHEW PO PRN (09:26)
[2016-09-30] MEDS: ENOXAPARIN SODIUM INJ 80 MG/0.8 ML DISP.SYRIN SUBCUT SCH (09:33)
[2016-09-30 12:23] VITALS: BP 97/50
--- NOTE | 2016-09-30 14:14 | DISCHARGE SUMMARY E ---
Discharge Summary NAME: RONNIE WOMACK : 1970 AGE: 46Y ADMITTED: 09/28/2016 DISCHARGED: 09/30/2016 CODE STATUS: FULL CODE. PRIMARY CARE PROVIDER: [place]. CONSULTING RUBBER FLAP TUBER MACHINE OPERATOR: Dr. Virk DISCHARGE DIAGNOSES: Includes: 1. Bilateral pulmonary emboli. 2. Pneumonia secondary to number 1. 3. Postoperative from hysterectomy. DISCHARGE MEDICATIONS: Include: 1. Colace 100 mg p.o. q. 8 hours p.r.n. 2. Lorazepam 1 mg p.o. daily p.r.n. 3. Oxycodone 10 mg p.o. q. 4 hours p.r.n. 4. Zoloft 50 mg p.o. daily. 5. Gas-X 125 mg p.o. q. 12 hours p.r.n. 6. Augmentin 875/125 one tablet p.o. q. 12 hours, 16 tablets, 0 refills. 7. Xarelto starter pack. DIET: As tolerated. ACTIVITY: As tolerated. DIAGNOSTICS: Lab values are as follows: Hematology obtained on 09/30/2016: WBCs are 13.9, hemoglobin is 9.6, hematocrit is 27.6, platelet count is 197,000. Coagulation obtained on 09/27/2016: PT is 14.4, INR is 1.05. Chemistry obtained on 09/29/2016: Sodium is 132, potassium is 3.8, chloride is 96, carbon dioxide 28, BUN 8, creatinine is 0.86, glucose 91, calcium is 8.5, magnesium is 1.9, bilirubin is 0.8. AST 28, ALT is 39, Alk phos 58, CK 20, CK-MB is 0.22, troponin is 0.012. Total protein 6.9, albumin 3.8, lipase is 27.3. Urinalysis obtained on 09/28/2016: Color yellow, appearance slightly cloudy. PH is 5.0, specific gravity is 1.019. Protein negative, glucose negative, ketones trace, occult blood moderate, nitrate negative, bilirubin negative, urobilinogen is negative, leukocyte esterase is small. WBCs 47, RBCs 5, bacteria trace, epithelial squamous cells 10, mucus rare, ascorbic acid is negative. Other body source obtained on 09/30/2016: Stool for occult blood is negative. Microbiology: Blood culture obtained on 09/28/2016 is unremarkable. Urine culture obtained on 09/28/2016 is unremarkable. Chest x-ray obtained on 09/27/2016 reveals no acute radiographic finding of the chest. Venous Doppler obtained on 09/28/2016 reveals no significant evidence of DVT. Chest and abdominal CT obtained on 09/27/2016 reveals bacterial pulmonary emboli involving lower lobe distribution as noted above. No CT evidence of heart strain, bilateral lower lobe airspace disease that may represent subsegmental atelectasis, aspiration, or developing pneumonia, trace bilateral pleural effusions, presumably reactive. EKG obtained on 09/27/2016 reveals sinus rhythm. HISTORY OF PRESENT ILLNESS: The patient is a 46-year-old female with a past medical history of a recent hysterectomy at [facility] about a week ago. The patient presented to the emergency department with a chief complaint of chest pain. The patient states she awoken the morning of 09/27 with pronounced sharp left-side chest pain, which radiated to her back, increasing with movement or deep breath. No calf pain or swelling. The patient noted some chills. The patient also had some intermittent diarrhea and loose stool since her surgery and no dysuria. The patient described a lot of gas pain related to her abdominal surgery, but denied any chronic problem. Patient denied any family history of clotting problems. The patient's CTA of the chest was suggestive of bilateral emboli, and the patient was referred to the hospitalist for admission and management. HOSPITAL COURSE: The patient was admitted to [facility]. The patient was placed on therapeutic-dosed Lovenox and was also treated for pneumonia. The patient's symptoms improved significantly with treatment, and the patient's symptoms of pneumonia completely resolved. The patient was seen by Dr. Virk with Oncology and recommended transition to Xarelto and the patient to follow up on an outpatient basis and is in agreeance with the plan. The patient has been cleared for discharge from Hematology perspective. DISCHARGE PLANNIN. The patient is advised to follow up with her care provider as scheduled. 2. The patient is advised to follow up with the surgeon as scheduled. 3. The patient is to follow up with Dr. Virk as already scheduled for hospital followup. Time spent on this discharge including specialty collaboration is 15 minutes. DICTATING PHYSICIAN: RED ROSE NP [id number] PHY#: [id number] ID: [id number] JOB#: [id number] ACCT: [id number] cc:Sathya RIVERA NP >
== END 2016-09-30 14:04 | disposition home or self-care (01) | DRG 175 ==
LOC: ER 20:18 → UNDOADMIN 23:55 → EH 23:55 → 3W 09-28 01:40
PROVIDERS: ADMIT Family Medicine; ATTEND Family Medicine
PROC: 3E0234Z Introduction of Serum, Toxoid and Vaccine into Muscle, Percutaneous Approach (ICD-10-PCS; principal; 2016-09-28)
DX: I26.99 Other pulmonary embolism without acute cor pulmonale (principal); J18.9 Pneumonia, unspecified organism; F41.1 Generalized anxiety disorder; F32.9 Major depressive disorder, single episode, unspecified; Z98.890 Other specified postprocedural states; M19.90 Unspecified osteoarthritis, unspecified site; Z91.010 Allergy to peanuts; Z79.02 Long term (current) use of antithrombotics/antiplatelets; Z88.6 Allergy status to analgesic agent; Z90.710 Acquired absence of both cervix and uterus
CPT/HCPCS: 36415; 71010; 71275; 80048; 80053; 81001; 82272; 82550; 82553; 83690; 83735; 84484; 85025; 85027; 85610; 85730; 87040; 87086; 93005; 93010; 93970; 94799; 96372; 96374; 96375; 99291; J0456; J0696; J1170; J1650; J2270; J2405; J2543; J3490; J7060

== ENCOUNTER 2019-01-04 01:45 | Emergency (ER) | payer BC ==
[2019-01-04 01:54] VITALS: BP 116/61
[2019-01-04] MEDS ORDERED: HYDROCODONE/ACETAMINOPHEN 5-325 MG (6 TAB/ER DISP) PO PRN (02:18)
--- NOTE | 2019-01-04 02:21 | ER Document Report ---
HPI - HPI Patient complains to provider of: knee injury Time Seen by Provider: 01/04/19 02:05 Onset: This evening Onset/Duration: Sudden Quality of pain: Achy Pain Level: 4 Context: Patient states she was walking and attempting to jump over a ditch. Patient states that she felt her kneecap slide out of place and then moved back into position. Patient denies any fall. Patient complains of right knee pain and swelling since then. Patient does report a history of psoriatic arthritis. Associated Symptoms: Other - Right knee tenderness Exacerbated by: Standing, Movement, Walking Relieved by: Denies Similar symptoms previously: No Recently seen / treated by doctor: No - ROS ROS below otherwise negative: Yes Systems Reviewed and Negative: Yes All other systems reviewed and negative - NEURO Neurology: DENIES: Weakness - GASTROINTESTINAL Gastrointestinal: DENIES: Nausea - REPRODUCTIVE LMP: hyst Reproductive: DENIES: : - MUSCULOSKELETAL Musculoskeletal: REPORTS: Extremity pain, Swelling - DERM Skin Color: Normal Skin Problems: None Past Medical History - General Information source: Patient - Social History Smoking Status: Never Smoker Frequency of alcohol use: Occasional Drug Abuse: None Occupation: retail Lives with: Family Family History: None Patient has suicidal ideation: No Patient has homicidal ideation: No Musculoskeletal Medical History: Reports Hx Arthritis - Mild arthritis Psychiatric Medical History: Reports: Hx Depression Infectious Medical History: Denies: Hx Hepatitis Past Surgical History: Reports: Hx Hysterectomy, Hx Orthopedic Surgery - Carpal tunnel release Vertical Provider Document - CONSTITUTIONAL Agree With Documented VS: Yes Exam Limitations: No Limitations General Appearance: WD/WN, No Apparent Distress - INFECTION CONTROL TRAVEL OUTSIDE OF THE [place] IN LAST 30 DAYS: No - HEENT HEENT: Atraumatic, Normocephalic - NECK Neck: Normal Inspection - RESPIRATORY Respiratory: No Respiratory Distress - CARDIOVASCULAR Pulses: Normal: Posterior tibial, Dorsalis pedis - MUSCULOSKELETAL/EXTREMETIES Musculoskeletal/Extremeties: MAEW, Tender - Right knee joint tenderness to popliteal area and inferior compartment, mild joint effusion, no laxity with varus or valgus maneuvers. Patellar tendon intact. - NEURO Level of Consciousness: Awake, Alert, Appropriate Motor/Sensory: No Motor Deficit, No Sensory Deficit - DERM Integumentary: Warm, Dry Course - Vital Signs Vital signs: Temp Pulse Resp BP Pulse Ox 97.3 F 70 18 116/61 100 01/04/19 01:51 01/04/19 01:51 01/04/19 01:51 01/04/19 01:51 01/04/19 01:51 - Diagnostic Test Radiology reviewed: Pending, Image reviewed Procedures - Immobilization Right Knee Pre-Proc Neuro Vasc Exam: Normal Immobilizer type: Sami wrap, Knee immobilizer Performed by: PCT Post-Proc Neuro Vasc Exam: Normal Alignment checked and good: Yes Discharge - Discharge Clinical Impression: Right knee sprain Qualifiers: Encounter type: initial encounter Involved ligament of knee: unspecified ligament Qualified Code(s): S83.91XA - Sprain of unspecified site of right knee, initial encounter Condition: Stable Disposition: HOME, SELF-CARE Instructions: Use of Crutches ([facility]), Ice & Elevation ([facility]), Suspected Internal Knee Injury ([facility]), Knee Immobilizing Splint ([facility]), Oral Narcotic Medication ([facility]), Sprained Knee ([facility]) Additional Instructions: Return immediately for any new or worsening symptoms Followup with your primary care provider, call tomorrow to make a followup appointment Follow-up with orthopedics, call Friday for follow-up appointment Forms: Return to Work Referrals: CHET HELMS MD [Primary Care Provider] - Follow up as needed TRA AHUJA JR, [ACTIVE PROVISIONAL STAFF] - Follow up as needed [facility] [Provider Group] - Follow up as needed
--- NOTE | 2019-01-04 02:24 | RADIOLOGY REPORT (SQ) ---
EXAM DESCRIPTION: XR KNEE 3 VIEWS COMPLETED DATE/TME: 01/04/2019 00:00 CLINICAL HISTORY: 48 years, Female, "dislocated" COMPARISON: None. NUMBER OF VIEWS: 3 TECHNIQUE: 3 views right knee LIMITATIONS: None. FINDINGS: Negative for fracture or dislocation. Soft tissues are unremarkable IMPRESSION: Negative exam copyright 2010 [employer]- All Rights Reserved
== END 2019-01-04 02:49 | disposition home or self-care (01) ==
LOC: ER 01:45
DX: S83.91XA Sprain of unspecified site of right knee, initial encounter (principal); M25.561 Pain in right knee; M25.461 Effusion, right knee; X58.XXXA Exposure to other specified factors, initial encounter
CPT/HCPCS: 73562; L1830; 99283

== ENCOUNTER → 2019-01-22 | Outpatient (CLI) | payer BC ==
--- NOTE | 2019-01-23 13:55 | RADIOLOGY REPORT (SQ) ---
EXAM DESCRIPTION: MRI RT LOWER JOINT WITHOUT COMPLETED DATE/TIME: 01/22/2019 7:58 pm REASON FOR STUDY: M25.561 Pain in right knee M25.561 PAIN IN RIGHT KNEE COMPARISON: None. TECHNIQUE: Rightknee images acquired and stored on PACS. Multiplanar images include fat sensitive s equences as T1, water sensitive sequences as FST2 or STIR, cartilage sensitive sequences as FSPD, and gradient echo sequences. LIMITATIONS: Motion. Artifact associated with body habitus. FINDINGS: JOINT AND BURSAE: Large effusion. BONE CORTEX AND MARROW: No alteration of signal to suggest marrow replacement. No worrisome bone lesi ons. No occult fracture. ACL: Increased T2 signal within poorly defined fibers. PCL: Intact. MCL: Intact. No periligamentous edema or fluid. LCL: Intact. No periligamentous edema or fluid. MEDIAL MENISCUS: No obvious tear. LATERAL MENISCUS: No obvious tear. MEDIAL COMPARTMENT: Cartilage thinning. No large osteophytes or subchondral edema. LATERAL COMPARTMENT: Cartilage thinning. No large osteophytes. Subchondral edema posterior tibial p lateau. PATELLA: Cartilage thinning. No large osteophytes or subchondral edema. Intact retinaculum. EXTENSOR MECHANISM: Intact. Quadriceps and patella tendons normal. SOFT TISSUES: Adjacent muscles and subcutaneous tissues normal. Normal flow void in popliteal artery and vein. OTHER: No other significant finding. IMPRESSION: 1. Technical limitations. 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 Cannot exclude at least partial t ear. Clinical correlation is needed. 2. Tricompartment chondromalacia. Subchondral edema posterolateral tibial plateau. 3. Joint effusion. TECHNICAL DOCUMENTATION: JOB ID: [id number] [employer]- All Rights Reserved Reading location - IP/workstation name: [email or web address]
== END ==
LOC: RAD 18:42
PROVIDERS: ATTEND Physician Assistant
DX: M25.561 Pain in right knee (principal); M22.41 Chondromalacia patellae, right knee; M25.461 Effusion, right knee